=== PATIENT | female | born 1955 | race Hispanic/Latino ===

== ENCOUNTER 2018-03-04 15:42 | Outpatient (CLI) | payer OTHER ==
--- NOTE | 2018-03-04 20:42 | RAD ---
TWO VIEW CHEST: 03/04/18 No prior imaging comparison available. INDICATION: Short of breath with recent fall. FINDINGS: No evidence of consolidation, effusion or pneumothorax. Interstitial prominence of each lung is seen. The cardiac silhouette is mildly enlarged. There is ectasia and tortuosity of the thoracic aorta. Sc attered osseous degenerative change is present. No focal consolidation. IMPRESSION: Prominent cardiac silhouette. Correlate clinically. POS: RUI
--- NOTE | 2018-03-04 20:43 | RAD ---
THREE VIEW RIGHT RIB SERIES: 03/04/18 CLINICAL HISTORY: Recent fall with short of breath, injury with pain. FINDINGS: No displaced fracture or right ribs is seen. Right lung is clear. IMPRESSION: No displaced right rib fracture. POS: H
== END 2018-03-04 15:43 | disposition home or self-care (01) ==
LOC: BICRAD 15:42
PROVIDERS: ATTEND Family Medicine
DX: R07.81 Pleurodynia (principal); R06.02 Shortness of breath
CPT/HCPCS: 71046

== ENCOUNTER 2018-10-10 14:21 | Outpatient (CLI) | payer OTHER ==
--- NOTE | 2018-10-10 14:52 | MMO ---
Bilateral MAMMO Bilat Screen [facility]. CLINICAL HISTORY: Patient is 63 years old and is seen for screening. The patient has no family history of breast cancer. The patient has no personal history of cancer. VIEWS: The views performed were: bilateral craniocaudal with tomosynthesis and bilateral mediolateral oblique with tomosynthesis. FILMS COMPARED: The present examination has been compared to prior imaging studies performed at [facility] on 01/28/2011, 02/03/2012, 06/01/2013 and 04/22/2016. MAMMOGRAM FINDINGS: There are scattered fibroglandular densities. There are no suspicious masses, suspicious calcifications, or new areas of architectural distortion. IMPRESSION: THERE IS NO MAMMOGRAPHIC EVIDENCE OF MALIGNANCY. A ROUTINE FOLLOW-UP MAMMOGRAM IN 1 YEAR IS RECOMMENDED. THE RESULTS OF THIS EXAM WERE SENT TO THE PATIENT. ACR BI-RADS Category 1 - Negative MAMMOGRAPHY NOTE: 1. A negative mammogram report should not delay a biopsy if a dominant of clinically suspicious mass is present. 2. Approximately 10% to 15% of breast cancers are not detected by mammography. 3. Adenosis and dense breasts may obscure an underlying neoplasm. Reported by: KAVON MEJIA MD Electonically Signed: [id number]
== END 2018-10-10 14:22 | disposition home or self-care (01) ==
LOC: BICMAMMO 14:21
PROVIDERS: ATTEND Family Medicine
DX: Z12.31 Encounter for screening mammogram for malignant neoplasm of breast (principal)
CPT/HCPCS: 77063; 77067

== ENCOUNTER 2018-11-15 10:18 | Outpatient (CLI) | payer MEDICARE ==
--- NOTE | 2018-11-15 12:57 | RAD ---
NASAL BONES 3 VIEWS: Date: 11/15/18 HISTORY: Injury, contusion of face. FINDINGS: No evidence for acute nasal bone fracture. The sinuses appear clear as visualized. IMPRESSION: No evidence for acute nasal bone fracture. POS: TPC
== END 2018-11-15 10:19 | disposition home or self-care (01) ==
LOC: BICRAD 10:18
PROVIDERS: ATTEND Nurse Practitioner Family
DX: S00.83XA Contusion of other part of head, initial encounter (principal)
CPT/HCPCS: 70160

== ENCOUNTER 2019-01-09 15:24 | Outpatient (CLI) | payer MEDICARE ==
[2019-01-09 16:12] LABS: Estimated GFR-MDRD - POC Greater than 90
--- NOTE | 2019-01-09 16:55 | MRI ---
BRAIN MRI WITH AND WITHOUT CONTRAST: Indication: Headache. FINDINGS: There is no evidence of ventriculomegaly, mass effect, midline shift or acute territorial infarction. Mild signal abnormalities of the cerebral parenchyma indicate mild chronic microvascular ischemic di sease. There is mild pontine gliosis. No hemorrhagic susceptibility. No pathologic intraaxial enhance ment. Incidental note of mucosal thickening/retention cyst formation of the paranasal sinuses. IMPRESSION: 1. No acute intracranial abnormalities. 2. Mild chronic ischemic disease. POS: C
== END 2019-01-09 15:25 | disposition home or self-care (01) ==
LOC: BICMRI 15:24
PROVIDERS: ATTEND Family Medicine
DX: R51 Headache (principal); I67.82 Cerebral ischemia
CPT/HCPCS: 70553; 82565

== ENCOUNTER 2019-04-03 17:03 | Emergency (ER) | payer MEDICARE ==
[2019-04-03] MEDS ORDERED: HYDROcodone/Acetaminophen 5/325 mg Tablet ONE (17:22)
[2019-04-03] MEDS ORDERED: Lidocaine 1% w/Epinephrine 1:100K 20 ML VIAL ONE (18:17)
--- NOTE | 2019-04-03 18:28 | CT ---
HEAD CT WITHOUT CONTRAST: History: Fall, trauma, pain. FINDINGS: No parenchymal hemorrhage. No extraaxial hematoma. No midline shift. Basilar cisterns are present. Brain volume is age appropriate. Cortical weeks white matter differentiation is preserved. No hydrocephalus. Adequate aeration of the mastoid air cells. Mucous retention cysts in both maxillary sinuses. Intact calvarium. IMPRESSION: No intracranial post-traumatic sequelae. POS: PPP
--- NOTE | 2019-04-03 18:39 | CT ---
CT CERVICAL SPINE WITHOUT CONTRAST: History: Fall, trauma, pain. FINDINGS: No craniocervical disassociation. Appropriate alignment of the lateral masses of C1 and C2. Intact od ontoid process. Cervical spine vertebral body heights are maintain. There is no cervical spine fractu re. Change of normal cervical lordosis may be due to patient position, muscle spasm or cervical colla r. Current study does not assess adequately in terms of ligamentous injury. There is no prevertebral soft tissue swelling. Visualized soft tissue neck structures are unremarkabl e. Hypodensity in the right thyroid lobe, measuring 0.4 cm, incompletely evaluated. Visualized lung apices and upper mediastinum are unremarkable. The central spinal canal and neural foramina are patent. Technique limits evaluation. IMPRESSION: 1. No cervical spine fracture. 2. Straightening of the cervical lordosis as above. If there is concern for ligamentous injury, MRI s hould be considered. POS: PPP
--- NOTE | 2019-04-03 18:40 | RAD ---
RIGHT SHOULDER THREE VIEWS: History: Fall, trauma, pain. FINDINGS: Glenohumeral joint space is preserved. No fracture. No dislocation. Marked degenerative change of the acromioclavicular joint. Visualized right ribs are unremarkable. IMPRESSION: No fracture or dislocation. POS: PPP
--- NOTE | 2019-04-03 19:00 | RAD ---
FOUR VIEWS RIGHT ELBOW: History: Trauma, fall, pain. FINDINGS: No fracture, cortical irregularity or periosteal reaction. The joint spaces appear preserved. No sign ificant joint effusion. IMPRESSION: No radiographic evidence of fracture. If there is pain or point tenderness, immobilization and follow up imaging in 7-10 days. POS: PPP
--- NOTE | 2019-04-03 19:01 | RAD ---
RIGHT TIBIA AND FIBULA TWO VIEWS: History: Pain, fall, trauma. FINDINGS: No fractures, cortical irregularity, or periosteal reaction. IMPRESSION: No fracture. POS: PPP
--- NOTE | 2019-04-03 19:01 | RAD ---
FOUR VIEWS RIGHT KNEE: History: Pain. Trauma. Fall. FINDINGS: No joint effusion. No fracture or malalignment. Joint spaces are preserved. IMPRESSION: No post-traumatic change in the right knee. POS: PPP
--- NOTE | 2019-04-03 19:17 | CT ---
MAXILLOFACIAL CT: History: Fall, trauma, laceration above the right eye. FINDINGS: The visualized brain parenchyma is unremarkable. Bilateral ocular lenses are appropriately located. B oth globes are intact. Retrobulbar fat is preserved. Symmetric attenuation of the optic nerves and oc ular rectus muscles. There is right periorbital hematoma. Nasal bones, zygomatic arches, maxilla and mandible are intact. Mucous retention cysts in both maxill phuong sinuses. Pterygoid plates are intact. No evidence of a fracture with regards to the osseous margins of the sin uses or mastoid air cells. Bilaterally, osteomeatal complexes are patent. Contra bullosa is noted in the right superior turbinat e. IMPRESSION: 1. Right periorbital post-traumatic change. 2. No mass or facial fracture. POS: PPP
== END 2019-04-03 19:00 | disposition home or self-care (01) ==
LOC: ERS 17:03
DX: S01.81XA Laceration without foreign body of other part of head, initial encounter (principal); S50.311A Abrasion of right elbow, initial encounter; E11.9 Type 2 diabetes mellitus without complications; E78.5 Hyperlipidemia, unspecified; E78.00 Pure hypercholesterolemia, unspecified; I10 Essential (primary) hypertension; F32.9 Major depressive disorder, single episode, unspecified; W19.XXXA Unspecified fall, initial encounter
CPT/HCPCS: 12011; 70450; 70486; 72125; L0120

== ENCOUNTER 2020-11-07 14:58 | Outpatient (CLI) | payer MEDICARE | END 2020-11-07 14:59 | disposition home or self-care (01) | LOC: BICMAMMO 14:58 | PROVIDERS: ATTEND Family Medicine | DX: Z12.31 Encounter for screening mammogram for malignant neoplasm of breast (principal) | CPT/HCPCS: 77063; 77067 ==

== ENCOUNTER 2021-11-10 14:46 | Outpatient (CLI) | payer MEDICARE, OTHER | END 2021-11-10 14:47 | disposition home or self-care (01) | LOC: BICMAMMO 14:46 | PROVIDERS: ATTEND Family Medicine | DX: Z12.31 Encounter for screening mammogram for malignant neoplasm of breast (principal) | CPT/HCPCS: 77063; 77067 ==

== ENCOUNTER 2022-12-22 11:41 | Outpatient (CLI) | payer OTHER | END 2022-12-22 11:42 | disposition home or self-care (01) | LOC: BICMAMMO 11:41 | PROVIDERS: ATTEND Family Medicine | DX: Z12.31 Encounter for screening mammogram for malignant neoplasm of breast (principal) | CPT/HCPCS: 77063; 77067 ==

== ENCOUNTER 2023-12-24 12:23 | Outpatient (CLI) | payer OTHER | END 2023-12-24 12:24 | disposition home or self-care (01) | LOC: BICMAMMO 12:23 | PROVIDERS: ATTEND Family Medicine | DX: Z12.31 Encounter for screening mammogram for malignant neoplasm of breast (principal) | CPT/HCPCS: 77063; 77067 ==

== ENCOUNTER 2024-12-28 14:13 | Outpatient (CLI) | payer OTHER | END 2024-12-28 14:14 | disposition home or self-care (01) | LOC: BICMAMMO 14:13 | PROVIDERS: ATTEND Family Medicine | DX: Z12.31 Encounter for screening mammogram for malignant neoplasm of breast (principal); Z80.3 Family history of malignant neoplasm of breast | CPT/HCPCS: 77063; 77067 ==